=== PATIENT | male | born 1985 | race Caucasian/White ===

== ENCOUNTER 2018-08-12 02:26 | Emergency (ER) | payer BC ==
[2018-08-12] MEDS ORDERED: methylPREDNISolone Sod Succ/PF 125 MG/2 ML VIAL ONE (03:13)
[2018-08-12] MEDS ORDERED: Metoclopramide HCl 10 MG/2 ML VIAL ONE (03:13)
[2018-08-12] MEDS ORDERED: diphenhydrAMINE 50 MG/ML VIAL ONE (03:13)
[2018-08-12] MEDS ORDERED: Ketorolac Tromethamine 30 MG/ML VIAL ONE (03:13)
[2018-08-12] MEDS ORDERED: Sodium Chloride 0.9% 1,000 ML ONE (03:14)
[2018-08-12 03:38] LABS: ALT (SGPT) 23 U/L (8-55); AST (SGOT) 28 U/L (5-34); Albumin 4.3 g/dL (3.5-5.0); Alkaline Phosphatase 101 U/L (40-150); Anion Gap 14 mmol/L (10-20); BUN (Urea Nitrogen) 7 mg/dL (8.9-20.6); Bilirubin, Total 0.9 mg/dL (0.2-1.2); Calc. Creatinine Clearance 0 mL/min (70-130); Calcium 8.9 mg/dL (7.8-10.44); Carbon Dioxide 24 mmol/L (22-29); Chloride 105 mmol/L (98-107); Estimated GFR-MDRD Greater than 90; Globulin 2.5 g/dL (2.4-3.5); Glucose 97 mg/dL (70-105); Potassium 3.6 mmol/L (3.5-5.1); Protein, Total 6.8 g/dL (6.0-8.3); Sodium 139 mmol/L (136-145)
[2018-08-12 03:54] LABS: #Basophils 0.1 thou/uL (0.0-0.2); #Eosinphils 0.1 thou/uL (0.0-0.7); #Lymphocytes 2.3 thou/uL (1.20-3.40); #Monocytes 0.6 thou/uL (0.11-0.59); #Neutrophils 5.2 thou/uL (1.40-6.50); %Basophils 0.9 % (0.0-1.0); %Eosinophils 1.6 % (0.0-10.0); %Lymphocytes 27.6 % (21.0-51.0); %Monocytes 7.2 % (0.0-10.0); %Neutrophils 62.7 % (42.0-75.0); Hemoglobin 14.8 g/dL (14.0-18.0); Mean Corpuscular HGB CONC 34.8 g/dL (32.0-36.0); Mean Corpuscular Hemoglobin 29.3 pg (27.0-31.0); Mean Corpuscular Volume 84.3 fL (78.0-98.0); Mean Platelet Volume 5.7 fL (7.4-10.4); Platelet Count 355 thou/uL (130-400); RBC Distribution Width 10.2 % (11.5-14.5); Red Blood Cell (RBC) Count 5.06 mill/uL (4.70-6.10); White Blood Cell (WBC) Count 8.4 thou/uL (4.8-10.8)
== END 2018-08-12 07:08 | disposition home or self-care (01) ==
LOC: MADERS 02:26
DX: G43.909 Migraine, unspecified, not intractable, without status migrainosus (principal); R21 Rash and other nonspecific skin eruption
CPT/HCPCS: 36415; 80053; 85025; 96361; 96374; 96375; J1200; J1885; J2765; J2930; J7050